=== PATIENT | male | born 1955 | race African-American/Black ===

== ENCOUNTER 2017-09-23 17:26 | Observation (INO) | payer BC, OTHER ==
[2017-09-23] MEDS ORDERED: ONDANSETRON 4 MG/2 ML VIAL IVP STA (18:00)
[2017-09-23] MEDS ORDERED: SODIUM CHLORIDE 0.9% 1,000 ML IV STA (18:00)
[2017-09-23] MEDS ORDERED: HYDROmorphone 1 MG/ML 1 ML SYRINGE IVP STA (18:00)
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
[2017-09-23 18:27] LABS: Basophils % (A) 0 %; Eosinophils # (A) 0.2 k/uL (0-0.7); Eosinophils % (A) 2 %; HCT 40.5 % (39.0-53.0); HGB 13.4 gm/dL (13.0-17.5); Lymphocytes # (A) 2.1 k/uL (1.0-4.8); Lymphocytes % (A) 29 %; MCH 30.3 pg (25.0-35.0); MCHC 33.1 g/dL (31.0-37.0); MCV 91.5 fL (80.0-100.0); Mean Platelet Volume 7.9; Monocytes # (A) 0.3 k/uL (0-1.0); Monocytes % (A) 4 %; Neutrophils # (A) 4.6 k/uL (1.3-7.7); Neutrophils % (A) 63 %; Platelet Count 220 k/uL (150-450); RBC 4.43 m/uL (4.30-5.90); RDW 13.1 % (11.5-15.5); WBC 7.3 k/uL (3.8-10.6)
[2017-09-23 18:40] LABS: ALT 61 U/L (21-72); AST 38 U/L (17-59); Albumin 3.8 g/dL (3.5-5.0); Alkaline Phosphatase 80 U/L (38-126); Anion Gap 9 mmol/L; Blood Urea Nitrogen 13 mg/dL (9-20); Calcium 9.2 mg/dL (8.4-10.2); Carbon Dioxide 25 mmol/L (22-30); Chloride 108 mmol/L (98-107); Glucose 91 mg/dL (74-99); Magnesium 1.8 mg/dL (1.6-2.3); Phosphorus 3.1 mg/dL (2.5-4.5); Potassium 3.6 mmol/L (3.5-5.1); Sodium 142 mmol/L (137-145); Total Bilirubin 0.6 mg/dL (0.2-1.3); Total Protein 7.2 g/dL (6.3-8.2)
[2017-09-23 19:01] LABS: Creatine Kinase 314 U/L (55-170)
[2017-09-23 19:02] LABS: INR 1.1 (<1.2); Partial Thromboplastin Time 25.7 sec (22.0-30.0); Prothrombin Time 10.5 sec (9.0-12.0)
[2017-09-23 19:14] LABS: Creatine Kinase MB 2.1 ng/mL (0.0-2.4); Troponin I <0.012 ng/mL (0.000-0.034)
--- NOTE | 2017-09-23 19:57 | CT ---
EXAMINATION TYPE: CT lumbar spine wo con DATE OF EXAM: 09/23/2017 7:05 PM HISTORY: Lower back pain that radiates into right leg. TECHNIQUE: Departmental protocol. Unenhanced CT of the lumbar spine was performed. Bone and soft tis emily reconstruction algorithms are submitted with axial, coronal, and sagittal sequences. CT DLP: 943 mGycm. Automated exposure control for dose reduction was used. COMPARISON: NONE FINDINGS: There is no fracture or malalignment, and no pars interarticularis defect. There are mild multilevel degenerative disc and facet changes appreciated, with multilevel mild circu mferential disc bulging. However, there is no evident focal disc extrusion-protrusion and the study i s negative for spinal stenosis. The neuroforamen are patent bilaterally. IMPRESSION: 1. MILD MULTILEVEL LUMBAR SPONDYLOSIS CHANGES, BUT NEGATIVE FOR AMARJIT NERVE ROOT IMPINGEMENT. 2. INCIDENTAL FINDINGS: bilateral 1 mm nonobstructing renal calcifications, 1 cm homogeneously right adrenal nodule, consistent with benign adrenal adenoma, and generalized atherosclerotic calcification s are noted, in addition to fusiform there is mild dilation of the infrarenal abdominal aorta consist ent with 3.6 cm caliber infrarenal abdominal aortic aneurysm.
--- NOTE | 2017-09-23 20:04 | CT ---
EXAMINATION TYPE: CT abdomen pelvis wo con DATE OF EXAM: 09/23/2017 COMPARISON: 08/31/2015 HISTORY: Lower back pain that radiates into right leg. CT DLP: 943 mGycm Automated exposure control for dose reduction was used. TECHNIQUE: Helical acquisition of images was performed from the lung bases through the pelvis. FINDINGS: LUNG BASES: No significant abnormality is appreciated. LIVER/GB: No significant abnormality is appreciated. PANCREAS: No significant abnormality is seen. SPLEEN: No significant abnormality is seen. ADRENALS: No significant abnormality is seen. 1 cm low attenuation right adrenal nodule noted, consis tent with unchanged incidental benign adrenal adenoma. KIDNEYS: No significant abnormality is seen. Bilateral 1 mm nonobstructing renal calcifications are i ncidentally noted. PERITONEAL CAVITY: No free air is visualized EXTRAPERITONEAL SPACES OF THE ABDOMEN AND PELVIS: Negative. ADENOPATHY: None visualized REPRODUCTIVE ORGANS: No significant abnormality is seen URINARY BLADDER: No significant abnormality is seen. PELVIC ADENOPATHY: None visualized. OSSEOUS STRUCTURES: No significant abnormality is seen. BOWEL: No significant abnormality is seen. VASCULATURE: Diffuse atherosclerotic intimal calcifications are noted throughout the arterial anatomy . There is also fusiform aneurysmal dilation of the infrarenal abdominal aorta consistent with 3.6 cm abdominal aortic aneurysm; this measured 3.3 cm on the prior CT 2 years ago. The vasculature is othe rwise unremarkable. IMPRESSION: NO ACUTE PROCESS, CT ABDOMEN AND PELVIS WITHOUT CONTRAST.
[2017-09-23 22:45] VITALS: RESP 16
[2017-09-23] MEDS: HYDROmorphone 2 MG/ML 1 ML SYRINGE IVP PRN (23:06)
[2017-09-24] MEDS: HYDROmorphone 2 MG/ML 1 ML SYRINGE IVP PRN ×3 (05:19→16:18)
[2017-09-24] MEDS ORDERED: ENOXAPARIN 40 MG/0.4 ML SYRINGE SQ SCH (09:00)
[2017-09-24 11:13] LABS: Appearance,Urine Clear (Clear); Bilirubin,Urine Negative (Negative); Blood,Urine Negative (Negative); Color,Urine Yellow; Glucose,Urine (UA) Negative (Negative); Ketones,Urine Negative (Negative); Leukocyte Esterase,Urine Negative (Negative); Nitrite,Urine Negative (Negative); PH, Urine 6.5 (5.0-8.0); Protein,Urine Negative (Negative); Specific Gravity,Urine 1.016 (1.001-1.035)
[2017-09-24 15:27] VITALS: BP 153/84; PULSE 76; TEMP 97.5
[2017-09-24] MEDS ORDERED: methylPREDNISolone SOD SUCCI 125 MG/2 ML VIAL IV STA (15:34)
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
--- NOTE | 2017-09-24 18:21 | P.DS ---
Providers Date of admission: 09/23/17 20:32 Attending physician: Ariel Guerra Primary care physician: Farzaneh Castro [facility] Course: Please refer to my HPI Patient Condition at Discharge: Fair Plan - Discharge Summary Discharge Rx Participant: No New Discharge Prescriptions: New Etodolac [Lodine] 400 mg PO BID #30 tab Famotidine [Pepcid] 20 mg PO BID #30 tablet methylPREDNISolone Dose Pack [Medrol Dose Pack] 4 mg PO DIRECTED #21 package Baclofen 10 mg PO TID PRN #30 tab PRN Reason: Spasms HYDROcodone/APAP 7.5-325MG [[place] 7.5-325] 1 tab PO Q4H PRN #20 tab PRN Reason: Pain Discharge Medication List Baclofen 10 mg PO TID PRN #30 tab 09/24/17 [Rx] Etodolac [Lodine] 400 mg PO BID #30 tab 09/24/17 [Rx] Famotidine [Pepcid] 20 mg PO BID #30 tablet 09/24/17 [Rx] HYDROcodone/APAP 7.5-325MG [[place] 7.5-325] 1 tab PO Q4H PRN #20 tab 09/24/17 [Rx ] methylPREDNISolone Dose Pack [Medrol Dose Pack] 4 mg PO DIRECTED #21 package 09/24/17 [Rx] Follow up Appointment(s)/Referral(s): Gloria Moy MD [Primary Care Provider] - 09/29/17 2:10 pm Patient Instructions/Handouts: Back Pain (GEN) Activity/Diet/Wound Care/Special Instructions: Regular diet No smoking, cessation information provided. Activity as tolerated. Discharge Disposition: HOME SELF-CARE
== END 2017-09-24 16:29 | disposition home or self-care (01) ==
LOC: EC 17:26 → 4MS4W 20:32
PROVIDERS: ADMIT Hospitalist; ATTEND Hospitalist
DX: M54.40 Lumbago with sciatica, unspecified side (principal); G89.29 Other chronic pain; I10 Essential (primary) hypertension; E66.9 Obesity, unspecified; Z68.35 Body mass index [BMI] 35.0-35.9, adult; Z79.899 Other long term (current) drug therapy; F17.210 Nicotine dependence, cigarettes, uncomplicated; Z86.73 Personal history of transient ischemic attack (TIA), and cerebral infarction without residual deficits; M54.2 Cervicalgia; G62.9 Polyneuropathy, unspecified; Z88.8 Allergy status to other drugs, medicaments and biological substances; Z80.9 Family history of malignant neoplasm, unspecified; Z79.1 Long term (current) use of non-steroidal anti-inflammatories (NSAID)
CPT/HCPCS: 96361 ×5; 96375 ×4; 96376; 96372; 96374; 99285; 36415; 93005; 97162; 80053; 82550; 82553; 83735; 84100; 84484; 85025; 85610; 85730; 81003; 87086; 72131; 74176; G0378 ×2; J1170 ×3; J2930; J2405; J1650

== ENCOUNTER 2018-11-02 10:15 | Emergency (ER) | payer OTHER ==
[2018-11-02 10:25] VITALS: BP 151/70; PULSE 99; RESP 18; TEMP 98.7
[2018-11-02] MEDS ORDERED: MORPHINE SULFATE 4 MG/ML SYRINGE IM STA ×2 (10:56→12:48)
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
--- NOTE | 2018-11-02 11:44 | XR ---
EXAMINATION TYPE: XR lumbar spine 2 or 3V DATE OF EXAM: 11/02/2018 COMPARISON: NONE HISTORY: 63-year-old male with low back pain after fall TECHNIQUE: 3 views FINDINGS: 5 lumbar type vertebral bodies. Facet arthropathy mid to lower lumbar spine. Mild multilevel degenera tive disc interspace narrowing, more moderate at L5-S1. Vertebral body heights are preserved and alig nment is maintained. Atherosclerotic calcifications of the abdominal aorta with possible aneurysm don suring up to 3.8 cm versus 3.7 cm measured on 07/29/2015. IMPRESSION: 1. Facet arthropathy mid to lower lumbar spine. 2. No vertebral compression collapse or malalignment. 3. Mild multilevel degenerative disc disease, moderate at L5-S1. 4. AAA measured at 3.8 cm versus 3.7 cm in 2015. Not significantly changed.
--- NOTE | 2018-11-02 12:00 | CT ---
EXAMINATION TYPE: CT brain lamin porter con DATE OF EXAM: 11/02/2018 COMPARISON: None HISTORY: Sciatic nerve pain, medication refill CT DLP: 1398 mGycm, Automated exposure control for dose reduction was used. CONTRAST: Patient injected with mL of . CT of the brain is performed utilizing 3 mm thick sections through the posterior fossa and 3 mm thick sections through the remaining calvarium. Study is performed within 24 hours of arrival to the hospital. No abnormal hyperdensity is present to suggest an acute intracranial hemorrhage. No mass lesion is evident. No acute infarcts are evident. Ventricles and sulci are appropriate for the patient age. There is a patent cavum septum lucidum and cavum vergae, normal variants. Paranasal sinuses and mastoid air cells within the [id number] are clear. IMPRESSIONS: 1. Normal CT brain. CT cervical spine. COMPARISON: None CT of the cervical spine is performed in the axial plane at 2 mm thick sections. Reconstructed image s in the coronal, and sagittal plane are reviewed on the computer. No acute fractures are evident. Vertebral body alignment is normal. Mild narrowing of the mid to lower cervical spine present. Anterior vertebral body spurring is presen t. Vertebral body heights are preserved. No spinal canal stenosis is evident. No neural foraminal stenosis is evident. IMPRESSIONS: 1. Mild degenerative changes within the cervical spine
== END 2018-11-02 14:17 | disposition home or self-care (01) ==
LOC: EC 10:15
DX: M54.5 Low back pain (principal); M51.37 Other intervertebral disc degeneration, lumbosacral region; M46.96 Unspecified inflammatory spondylopathy, lumbar region; F17.200 Nicotine dependence, unspecified, uncomplicated; Z86.73 Personal history of transient ischemic attack (TIA), and cerebral infarction without residual deficits; Z88.6 Allergy status to analgesic agent
CPT/HCPCS: 99284; 96372 ×2; 72100; 72125; 70450; J2270

== ENCOUNTER 2019-06-02 21:56 | Emergency (ER) | payer OTHER ==
[2019-06-02 22:10] VITALS: RESP 18
[2019-06-02] MEDS ORDERED: predniSONE 20 MG TAB PO STA (22:41)
[2019-06-02] MEDS ORDERED: ORPHENADRINE 30 MG/ML 2 ML VIAL IM STA (22:41)
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
[2019-06-02 23:26] VITALS: BP 133/76; PULSE 72; TEMP 97.8
== END 2019-06-02 23:59 | disposition home or self-care (01) ==
LOC: EC 21:56
DX: G57.01 Lesion of sciatic nerve, right lower limb (principal); F17.200 Nicotine dependence, unspecified, uncomplicated; Z88.6 Allergy status to analgesic agent
CPT/HCPCS: 99283; 96372; J2360; J7512

== ENCOUNTER → 2019-10-07 | Outpatient (CLI) | payer OTHER ==
[2019-10-07 11:26] LABS: Basophils # (A) 0.1 k/uL (0-0.2); Basophils % (A) 2 %; Eosinophils # (A) 0.1 k/uL (0-0.7); Eosinophils % (A) 2 %; HGB 13.4 gm/dL (13.0-17.5); Lymphocytes % (A) 47 %; MCH 29.9 pg (25.0-35.0); MCHC 31.8 g/dL (31.0-37.0); Monocytes # (A) 0.2 k/uL (0-1.0); Monocytes % (A) 6 %; Neutrophils # (A) 1.7 k/uL (1.3-7.7); Neutrophils % (A) 41 %; Platelet Count 143 k/uL (150-450); RBC 4.47 m/uL (4.30-5.90); RDW 13.1 % (11.5-15.5); WBC 4.2 k/uL (3.8-10.6)
[2019-10-07 11:39] LABS: Prothrombin Time 10.6 sec (9.0-12.0)
[2019-10-07 11:48] LABS: Potassium 4.2 mmol/L (3.5-5.1); Total Bilirubin 0.6 mg/dL (0.2-1.3); Total Protein 7.8 g/dL (6.3-8.2)
--- NOTE | 2019-10-07 12:26 | US ---
EXAMINATION TYPE: US liver DATE OF EXAM: 10/07/2019 COMPARISON: CT 09/23/2014 CLINICAL HISTORY: B18.2 Chronic viral hepatitis C. NPO. No previous surgeries. EXAM MEASUREMENTS: Liver Length: 13.3 cm Gallbladder Wall: 0.2 cm CBD: 0.5 cm Right Kidney: 11.5 x 5.2 x 5.6 cm Pancreas: Tail obscured by overlying bowel gas Liver: No focal mass. Contours nodular Gallbladder: Multiple echogenic foci with shadowing seen. Multiple curves seen in neck region consi stent with redundancy luminal stones. Evidence for sonographic Cobos's sign: neg CBD: wnl Right Kidney: Cortical medullary differentiation is maintained. IMPRESSION: Cholelithiasis, correlate for possible underlying cirrhosis.
[2019-10-11 15:53] LABS: HCV Qualitative Result DETECTED (Not detected); HCV Quant Log 6.08 (<1.08)
== END | disposition home or self-care (01) ==
LOC: RADUSWWP 10:37
DX: K80.20 Calculus of gallbladder without cholecystitis without obstruction (principal); B18.2 Chronic viral hepatitis C
CPT/HCPCS: 76705; 80053; 82105; 85025; 85610; 87522; 87902

== ENCOUNTER 2020-10-26 08:09 | Inpatient (IN) | payer MEDICARE, MEDICAID ==
[2020-10-26] MEDS ORDERED: HALOPERIDOL LACTATE 5 MG/ML 1 ML VIAL IM STA ×2 (08:28→10:11)
[2020-10-26] MEDS ORDERED: LORazepam 2 MG/ML INJ IM STA ×2 (08:29→10:04)
[2020-10-26 09:26] LABS: Basophils # (A) 0.1 k/uL (0-0.2); Basophils % (A) 1 %; Eosinophils # (A) 0.1 k/uL (0-0.7); Eosinophils % (A) 2 %; HCT 41.5 % (39.0-53.0); HGB 13.8 gm/dL (13.0-17.5); Lymphocytes # (A) 2.5 k/uL (1.0-4.8); Lymphocytes % (A) 28 %; MCHC 33.2 g/dL (31.0-37.0); MCV 90.5 fL (80.0-100.0); Mean Platelet Volume 8.1; Monocytes # (A) 0.5 k/uL (0-1.0); Monocytes % (A) 6 %; Neutrophils # (A) 5.7 k/uL (1.3-7.7); Neutrophils % (A) 63 %; Platelet Count 190 k/uL (150-450); RBC 4.59 m/uL (4.30-5.90); RDW 13.3 % (11.5-15.5); WBC 9.1 k/uL (3.8-10.6)
[2020-10-26 09:40] LABS: Albumin 4.8 g/dL (3.5-5.0); Calcium 9.8 mg/dL (8.4-10.2); Total Bilirubin 0.5 mg/dL (0.2-1.3); Total Protein 9.1 g/dL (6.3-8.2)
[2020-10-26 11:22] LABS: Amphetamine Screen,Urine Not Detected (NotDetected); Barbiturate Screen,Urine Not Detected (NotDetected); Benzodiazepines Screen,Urine Not Detected (NotDetected); Cocaine Screen,Urine Not Detected (NotDetected); Methadone Screen, Urine Not Detected (NotDetected); Opiate Screen,Urine Not Detected (NotDetected); Oxycodone Screen, Urine Not Detected (NotDetected); Phencyclidine Screen,Urine Not Detected (NotDetected); Tricyclic Antidepressant,Urine Not Detected (NotDetected); Urn Cannabinoid Scrn Detected (NotDetected)
[2020-10-26 11:23] LABS: Appearance,Urine Clear (Clear); Bilirubin,Urine Negative (Negative); Blood,Urine Negative (Negative); Color,Urine Yellow; Glucose,Urine (UA) Negative (Negative); Ketones,Urine Negative (Negative); Leukocyte Esterase,Urine Negative (Negative); Mucus,Urine Rare /hpf; Nitrite,Urine Negative (Negative); Protein,Urine 1+ (Negative); RBC,Urine 1 /hpf (0-5); Specific Gravity,Urine 1.014 (1.001-1.035); Urobilinogen,Urine <2.0 mg/dL (<2.0); WBC,Urine 1 /hpf (0-5)
[2020-10-26] MEDS ORDERED: LORazepam 1 MG TAB PO PRN (12:19)
[2020-10-26] MEDS ORDERED: MAG HYDROX/AL HYDROX/SIMETH 30 ML CUP PO PRN (12:19)
[2020-10-26] MEDS ORDERED: MAGNESIUM HYDROXIDE 2,400 MG/10 ML CUP PO PRN (12:19)
[2020-10-26] MEDS ORDERED: ACETAMINOPHEN TAB 325 MG TAB PO PRN (12:19)
[2020-10-26] MEDS ORDERED: LORazepam 2 MG/ML INJ IM PRN (12:49)
[2020-10-26] MEDS ORDERED: HALOPERIDOL LACTATE 5 MG/ML 1 ML VIAL IM PRN (12:50)
[2020-10-26] MEDS ORDERED: haloperidoL 5 MG TAB PO PRN (12:51)
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
[2020-10-27] MEDS: amLODIPine 10 MG TAB PO SCH ×2 (00:21→09:19)
[2020-10-27 07:43] LABS: Calcium 9.4 mg/dL (8.4-10.2); Potassium 4.5 mmol/L (3.5-5.1)
--- NOTE | 2020-10-27 11:38 | P.HP ---
Psychiatric H&P - . H&P Date: 10/27/20 History & Physical: Allergies Allergy/AdvReac Type Severity Reaction Status Date / Time NSAIDS (Non-Steroidal Allergy Severe "STROKE,migraines,"black Verified 10/26/20 11:00 Anti-Inflamma outs",diarrhea,& dyspnea,&more" Vital Signs Temp 98.8 F 10/27/20 00:19 Pulse 116 H 10/27/20 09:21 Resp 18 10/27/20 09:21 BP 170/79 10/27/20 09:21 Pulse Ox 100 10/26/20 11:18 Intake & Output 10/26/20 10/27/20 10/27/20 18:59 06:59 18:59 Weight 91.371 kg Laboratory Last Values WBC 9.1 k/uL (3.8-10.6) 10/26/20 09: RBC 4.59 m/uL (4.30-5.90) 10/26/20 09:01 Hgb 13.8 gm/dL (13.0-17.5) 10/26/20 09:01 Hct 41.5 % (39.0-53.0) 10/26/20 09:01 MCV 90.5 fL (80.0-100.0) 10/26/20 09:01 MCH 30.0 pg (25.0-35.0) 10/26/20 09:01 MCHC 33.2 g/dL (31.0-37.0) 10/26/20 09:01 RDW 13.3 % (11.5-15.5) 10/26/20 09:01 Plt Count 190 k/uL (150-450) 10/26/20 09:01 MPV 8.1 10/26/20 09:01 Neutrophils % 63 % 10/26/20 09:01 Lymphocytes % 28 % 10/26/20 09:01 Monocytes % 6 % 10/26/20 09:01 Eosinophils % 2 % 10/26/20 09: Basophils % 1 % 10/26/20 09:01 Neutrophils # 5.7 k/uL (1.3-7.7) 10/26/20 09:01 Lymphocytes # 2.5 k/uL (1.0-4.8) 10/26/20 09: Monocytes # 0.5 k/uL (0-1.0) 10/26/20 09:01 Eosinophils # 0.1 k/uL (0-0.7) 10/26/20 09:01 Basophils # 0.1 k/uL (0-0.2) 10/26/20 09:01 Sodium 139 mmol/L (137-145) 10/27/20 07:13 Potassium 4.5 mmol/L (3.5-5.1) 10/27/20 07:13 Chloride 107 mmol/L (98-107) 10/27/20 07:13 Carbon Dioxide 22 mmol/L (22-30) 10/27/20 07:13 Anion Gap 10 mmol/L 10/27/20 07:13 BUN 17 mg/dL (9-20) 10/27/20 07:13 Creatinine 1.21 mg/dL (0.66-1.25) 10/27/20 07:13 Est GFR (CKD-EPI)AfAm 72 (>60 ml/min/1.73 sqM) 10/27/20 07:13 Est GFR (CKD-EPI)NonAf 63 (>60 ml/min/1.73 sqM) 10/27/20 07:13 Glucose 102 mg/dL (74-99) H 10/27/20 07:13 Calcium 9.4 mg/dL (8.4-10.2) 10/27/20 07:13 Total Bilirubin 0.5 mg/dL (0.2-1.3) 10/26/20 09:01 AST 34 U/L (17-59) 10/26/20 09:01 ALT 28 U/L (4-49) 10/26/20 09:01 Alkaline Phosphatase 85 U/L (38-126) 10/26/20 09:01 Total Protein 9.1 g/dL (6.3-8.2) H 10/26/20 09:01 Albumin 4.8 g/dL (3.5-5.0) 10/26/20 09:01 Triglycerides 151 mg/dL (<150) H 10/27/20 07:13 Cholesterol 224 mg/dL (<200) H 10/27/20 07:13 LDL Cholesterol, Calc 154 mg/dL (0-99) H 10/27/20 07:13 HDL Cholesterol 40 mg/dL (40-60) 10/27/20 07:13 Urine Color Yellow 10/26/20 09: Urine Appearance Clear (Clear) 10/26/20 09: Urine pH 6.0 (5.0-8.0) 10/26/20 09: Ur Specific Mullins 1.014 (1.001-1.035) 10/26/20 09: Urine Protein 1+ (Negative) H 10/26/20 09: Urine Glucose (UA) Negative (Negative) 10/26/20 09: Urine Ketones Negative (Negative) 10/26/20 09: Urine Blood Negative (Negative) 10/26/20 09: Urine Nitrite Negative (Negative) 10/26/20 09: Urine Bilirubin Negative (Negative) 10/26/20 09: Urine Urobilinogen <2.0 mg/dL (<2.0) 10/26/20 09: Ur Leukocyte Esterase Negative (Negative) 10/26/20 09: Urine RBC 1 /hpf (0-5) 10/26/20 09: Urine WBC 1 /hpf (0-5) 10/26/20 09: Urine Mucus Rare /hpf (None) H 10/26/20 09:01 Urine Opiates Screen Not Detected (NotDetected) 10/26/20 09: Ur Oxycodone Screen Not Detected (NotDetected) 10/26/20 09: Urine Methadone Screen Not Detected (NotDetected) 10/26/20 09:01 Ur Propoxyphene Screen Not Detected (NotDetected) 10/26/20 09: Ur Barbiturates Screen Not Detected (NotDetected) 10/26/20 09:01 U Tricyclic Antidepress Not Detected (NotDetected) 10/26/20 09:01 Ur Phencyclidine Scrn Not Detected (NotDetected) 10/26/20 09:01 Ur Amphetamines Screen Not Detected (NotDetected) 10/26/20 09:01 U Methamphetamines Scrn Not Detected (NotDetected) 10/26/20 09:01 U Benzodiazepines Scrn Not Detected (NotDetected) 10/26/20 09:01 Urine Cocaine Screen Not Detected (NotDetected) 10/26/20 09:01 U Marijuana (THC) Screen Detected (NotDetected) H 10/26/20 09:01 Coronavirus (PCR) Not Detected (Not Detectd) 10/26/20 09:01 10/27/20 10:51 IDENTIFYING DATA: Patient is a 65-year-old -[place]ese male who currently lives with his and apartment has 3 kids. HPI: Patient presented to the hospital yesterday with reports of "abnormal behavior". Patient's was claiming that patient has been erratic in his behavior. As per ER report states that patient was demanding that he was the "andrew of [place]". Patient also was displaying pressured speech at that time and admitted to not taking medications and was displaying agitated and combative behavior and required injection when necessary medications. Patient's UDS is positive for marijuana. Patient was admitted on petition and certificate. The patient was seen this morning and was agreeable to speak to writer producer in the office. Patient appeared to be intrusive and yelling at writer producer during the conversation. He also displayed pressured speech and was tangential in his thought process. He spoke about being a "supreme being". He also spoke about the laws not applying to him and spoke repeatedly about the courts and how they are plotting against him. He also spoke about being the "heidi of [place]" and states that "if you don't believe me then called the embassy". He also talked about being God's son was fairly grandiose. He was loose in associations and had multiple loosely formed delusions. He had a poor frustration tolerance and was labile during conversation. He has very poor insight into his condition and claims that his sleep has been poor. Patient denies any suicidal or homicidal ideations intent or plan. At this time patient denies any auditory or visual hallucinations. Patient admits to using marijuana daily and admits to using cigarettes. PAST PSYCHIATRIC HISTORY: Patient states that he has no previous psychiatric history. Patient denies being on any psychiatric medications. Patient denies any previous psychiatric hospitalizations. Patient denies any psychiatric outpatient follow-up. Patient denies any history of suicide attempts in the past. PMH: CVA, hypertension ALLERGIES: as per EMR CHEMICAL DEPENDENCY HISTORY: as per HPI FAMILY PSYCHIATRIC/SUBSTANCE USE HISTORY: denies SOCIAL HISTORY: Patient was born and raised in [facility]. He states that he completed high school. 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 He currently lives with his and apartment has 3 kids. He denies any legal history. MENTAL STATUS EXAM: General Appearance: Patient appears to be overweight, using a walker, stated age is alert, difficult to redirect and aggressive at times/labile. Patient appears to have poor hygiene and grooming. Behavior: Patient is seated without any agitated behavior. And intense stare and irritable. Speech: Patient's speech is pressured and loud. Mood/Affect: Patient reports their mood is "great", affect is congruent and expansive. Suicidality/Homicidality: Patient denies having any homicidal ideation intent or plan. Denies any suicidal ideations intent or plan Perceptions: Patient denies any visual hallucinations and denies any auditory hallucinations Though content/process: Patient has multiple loosely formed delusions, believes he is the andrew of [place], loosening associations. Illogical. Rambles. Memory and concentration: AOX3, grossly intact for the purposes of this session, poor concentration Judgment and insight: poor STRENGTHS/WEAKNESSES: strength is that patient is resilient. Weakness is that patient has poor judgment and is impulsive INTELLECT: average IMPRESSIONS: Bipolar disorder, current episode manic, with psychotic features Cannabis use disorder Nicotine dependence PLAN: -Patient is admitted under involuntary status to [facility]HU for stabilization of psychiatric symptoms and safety. Patient has signed adult voluntary form and medication consent and is placed in patient's chart. A second certification was completed and along with petition will be filed for court. -Medications : Will start patient on haloperidol 2.5 mg liquid twice a day for psychosis. Depakene 250 mg twice a day for mood stabilization. -Ativan and Haldol PRN for agitation/aggression -Patient was informed of the risks, benefits and side effects of the medication and patient claimed that he did not want to take medications. -Internal Medicine consult to perform medical evaluation and physical. -NRT - nicotine patch -SW on board for discharge planning. Encourage patient to participate in groups to work on coping skills. Will await deferral and court date. 10/27/20 11:25
[2020-10-27] MEDS: HALOPERIDOL ORAL SOLN 10 MG/5 ML CUP PO SCH ×2 (12:23→21:30)
[2020-10-27] MEDS: VALPROIC ACID ORAL SOLN 250 MG/5 ML CUP PO SCH ×2 (12:23→21:30)
[2020-10-27 17:17] LABS: Hemoglobin A1C 4.7 % (4.0-6.0)
[2020-10-27] MEDS ORDERED: VALPROIC ACID ORAL SOLN 250 MG/5 ML CUP PO SCH (21:00)
[2020-10-28] MEDS: HALOPERIDOL ORAL SOLN 10 MG/5 ML CUP PO SCH ×3 (09:01→21:34)
[2020-10-28] MEDS: VALPROIC ACID ORAL SOLN 250 MG/5 ML CUP PO SCH ×3 (09:01→21:35)
[2020-10-28] MEDS: amLODIPine 10 MG TAB PO SCH (09:01)
--- NOTE | 2020-10-28 17:17 | P.PN ---
Progress Note - Text Progress Note Date: 10/28/20 Clinical Problems: Bipolar disorder current episode manic with psychotic features, cannabis use disorder, tobacco use Interim history: I reviewed the medical record and interviewed the patient. He is a 65-year-old male with a history of a bipolar illness who was admitted to psychiatric unit involuntarily with symptoms of kendrick and psychosis. Today he was hyperverbal, irritable and paranoid. He expressed multiple paranoid and grandiose delusional beliefs. His anger and agitation escalated to where I had to end the interview. Nursing reports that he is refusing valproic acid prescribed for his bipolar illness. He received IM Haldol and Ativan yesterday for acute agitation. Mental status exam: He presented as a casually groomed elderly after Algerian male who is irritable, paranoid and agitated. He was walking with the aid of a wheeled walker. He was intermittently restless. His speech was pressured and he was hyperverbal. His affect was elevated, irritable and paranoid. He expressed ideas of reference, paranoid delusional beliefs and grandiose delusional beliefs. His thinking was disorganized, illogical and perseverative. Assessment: He is severely mentally ill and has no insight or understanding of his need for treatment. Plan: Continue inpatient treatment. Safety precautions. Proceed with involuntary hospitalization. Encourage compliance with valproic acid 2050 mg twice a day. Continue Haldol 5 mg IM/by mouth and Ativan 1 mg by mouth/IM when necessary for agitation, aggression or acute psychosis. Encourage participation in therapeutic groups and activities as tolerated. Evaluate clinical status response to treatment daily basis.
[2020-10-29] MEDS: HALOPERIDOL ORAL SOLN 10 MG/5 ML CUP PO SCH ×2 (08:53→22:05)
[2020-10-29] MEDS: VALPROIC ACID ORAL SOLN 250 MG/5 ML CUP PO SCH ×2 (08:54→22:05)
[2020-10-29] MEDS: amLODIPine 10 MG TAB PO SCH (08:54)
[2020-10-29] MEDS ORDERED: traMADol-ACETAMINOP 37.5-325MG 1 EACH TAB PO PRN (09:54)
[2020-10-29] MEDS: methocarbamoL 500 MG TAB PO PRN (11:58)
--- NOTE | 2020-10-29 14:57 | P.PN ---
Progress Note - Text Progress Note Date: 10/29/20 Clinical Problems: Bipolar disorder current episode manic with psychotic features, cannabis use disorder, tobacco use Interim history: I reviewed the medical record and interviewed the patient. He is much less irritable and restless than yesterday. She reported that he was compliant with his morning dose of Haldol 2.5 mg and valproic acid 250 mg. He is not regularly attending therapeutic groups and activities but he slept 6 hours last night. Mental status exam: He presented as a casually groomed elderly after German male who is irritable, paranoid and agitated. He was walking with the aid of a wheeled walker. He was intermittently restless. His speech was pressured and he was hyperverbal. His affect remains elevated and slightly irritable He continues to express ideas of reference, paranoid delusional beliefs and grandiose delusional beliefs. His thinking was disorganized, illogical and perseverative. Assessment: He is severely mentally ill and has no insight or understanding of his need for treatment. Plan: Continue inpatient treatment. Safety precautions. Probate hearing pending Encourage compliance with valproic acid 250 mg twice a day and Haldol 2.5 mg twice a day. Continue Haldol 5 mg IM/by mouth and Ativan 1 mg by mouth/IM when necessary for agitation, aggression or acute psychosis. Encourage participation in therapeutic groups and activities as tolerated. Evaluate clinical status response to treatment daily basis.
[2020-10-30] MEDS: VALPROIC ACID ORAL SOLN 250 MG/5 ML CUP PO SCH ×2 (09:37→21:44)
[2020-10-30] MEDS: HALOPERIDOL ORAL SOLN 10 MG/5 ML CUP PO SCH ×2 (09:37→21:44)
[2020-10-30] MEDS: amLODIPine 10 MG TAB PO SCH (09:37)
--- NOTE | 2020-10-30 11:29 | P.PN ---
Progress Note - Text Progress Note Date: 10/30/20 Interval History: Patient was seen resting in bed and was directable and agreeable to speak with blog writer in the office. Patient continues to endorse significant bizarre and grandiose delusions. When asked about his reason for his admission, the patient has difficulty maintaining a linear thought process. He does state that he is the last of the line of [employer] [place] and that it is his duty to return to [place] and set things right. Furthermore, the patient states that he previously served in the [employer]. 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 He then makes a statement about Srinivas Ramirez and is unable to clarify what he is trying to say. The patient reportedly deferred today. He states that he'll leora e medications for now but does not believe need to take medications in the future. Mental Status Exam: General Appearance: Patient appears to be stated age is alert, directable, and cooperative. Patient ambulates with a walker. Hygiene and grooming appear slightly disheveled. Behavior: Patient is calmly seated without any agitated behavior. Psychomotor activity slightly elevated. Eye contact is appropriate. Speech: Patient's speech is somewhat pressured. Rapid in rate. Normal tone, volume, and fluency. Mood/Affect: Mood is labile. Affect is tearful to bright to irritable. Suicidality/Homicidality: Patient denies having any suicidal or homicidal ideation intent or plan. Perceptions: Patient denies any visual hallucinations and denies any auditory hallucinations Though content/process: Grandiose and bizarre delusions are evident. Tangential with flight of ideas. Memory and concentration: AOX3, grossly intact for the purposes of this session Judgment and insight: Very poor Assessment Bipolar disorder, current episode manic, with psychotic features Cannabis use disorder Nicotine dependence Plan: -Patient continues to meet criteria for inpatient psychiatric admission for symptom stabilization and safety. Patient is scheduled for referral today. -Medications: Increase Haldol to 5 mg liquid by mouth twice a day for mood stabilization/psychosis Increase Depakene syrup to 500 mg by mouth twice a day for mood stabilization -When necessary Ativan and Haldol or agitation/aggression. -NRT - [icotine patch]-SW on board for discharge planning. Encouraged the patient to participate in milieu. [
[2020-10-31] MEDS: HALOPERIDOL ORAL SOLN 10 MG/5 ML CUP PO SCH ×2 (09:18→21:27)
[2020-10-31] MEDS: amLODIPine 10 MG TAB PO SCH (09:18)
[2020-10-31] MEDS: VALPROIC ACID ORAL SOLN 250 MG/5 ML CUP PO SCH ×2 (09:19→21:27)
--- NOTE | 2020-10-31 09:39 | P.PN ---
Progress Note - Text Progress Note Date: 10/31/20 Interval History: Patient was seen resting in bed and was directable and agreeable to speak with keno writer in the office. Patient reports that he is feeling better today. He states that he is trying to ambulate without his walker so that he is able to strengthen his legs. He is not reporting any suicidal or homicidal ideation, intention, and/or plan. He is denying any auditory or visual hallucinations. At this time, the patient is less forthcoming about any of his grandiose delusions or bizarre delusions that he endorsed yesterday. He has been adherent with his medications and is not reporting any significant side effects. He is not reporting any chest pain, shortness of breath, or if she is going to the restroom. He denies any issues with sleep or appetite. He states that he slept really well last night. Mental Status Exam: General Appearance: Patient appears to be stated age is alert, directable, and cooperative. Patient is ambulating without his walker. Hygiene and grooming appear improved. Behavior: Patient is calmly seated without any agitated behavior. Psychomotor activity appears normal. Eye contact is appropriate. Speech: Patient's speech is somewhat pressured. Normal tone, rate, volume, and fluency. Mood/Affect: Mood is described as "feeling better." Affect is euthymic to bright. Suicidality/Homicidality: Patient denies having any suicidal or homicidal ideation intent or plan. Perceptions: Patient denies any visual hallucinations and denies any auditory hallucinations Though content/process: Patient is not endorsing any bizarre delusional thought content today. Thought process appears to be linear and logical in short c onversation. Memory and concentration: AOX3, grossly intact for the purposes of this session Judgment and insight: Mildly improving Assessment Bipolar disorder, current episode manic, with psychotic features Cannabis use disorder Nicotine dependence Plan: -Patient continues to meet criteria for inpatient psychiatric admission for symptom stabilization and safety. Patient did not defer. He is scheduled for court. -Medications: Continue Haldol 3 mg liquid by mouth twice a day for mood stabilization/psychosis Continue Depakene syrup 500 mg by mouth twice a day for mood stabilization. We will order a Depakote level on . -When necessary Ativan and Haldol or agitation/aggression. -SW on board for discharge planning. Encouraged the patient to participate in milieu.
[2020-11-01] MEDS: amLODIPine 10 MG TAB PO SCH (09:26)
[2020-11-01] MEDS: VALPROIC ACID ORAL SOLN 250 MG/5 ML CUP PO SCH ×2 (09:26→21:00)
[2020-11-01] MEDS: HALOPERIDOL ORAL SOLN 10 MG/5 ML CUP PO SCH ×2 (09:26→21:01)
--- NOTE | 2020-11-01 11:47 | P.PN ---
Progress Note - Text Progress Note Date: 11/01/20 Interval History: Patient was seen resting in bed and was directable and agreeable to speak with film writer in the office. Patient continues to express that he is feeling great. He is not reporting any suicidal or homicidal ideation, intention, and/or plan. He is not reporting any auditory or visual hallucinations. He is denying any paranoia. When asking him about his plans upon discharge, the patient states that he wants to challenge the court order because it will stop him from "doing what he needs to do." When asked what this entails, the patient states that he plans to go to [place] after this hospitalization because he is thinking of [place] and he needs to work with [place], [place], and fix the problems with other countries. The patient states this in a nonchalant way and believes this firmly. He has otherwise been in adherent with his medications and is not reporting any significant side effects at this time. Mental Status Exam: General Appearance: Patient appears to be stated age is alert, directable, and cooperative. Patient is ambulating without his walker. Hygiene and grooming appear improved. Behavior: Patient is calmly seated without any agitated behavior. Psychomotor activity appears normal. Eye contact is appropriate. Speech: Patient's speech is somewhat pressured. Normal tone, rate, volume, and fluency. Mood/Affect: Mood is described as "feeling better." Affect is euthymic to bright. Suicidality/Homicidality: Patient denies having any suicidal or homicidal ideation intent or plan. Perceptions: Patient denies any visual hallucinations and denies any auditory hallucinations Though content/process: Patient does endorse grandiose delusions. Otherwise his thought process appears to be linear and logical. Memory and concentration: AOX3, grossly intact for the purposes of this session Judgment and insight: Poor Assessment Bipolar disorder, current episode manic, with psychotic features Cannabis use disorder Nicotine dependence Plan: -Patient continues to meet criteria for inpatient psychiatric admission for symptom stabilization and safety. Patient did not defer. He is scheduled for court. -Medications: Continue Haldol 3 mg liquid by mouth twice a day for mood stabilization/psychosis, we will continue to titrate pending patient's response and tolerance. Increase Depakene syrup to 750 mg by mouth twice a day for mood stabilization. -When necessary Ativan and Haldol or agitation/aggression. -SW on board for discharge planning. Encouraged the patient to participate in milieu.
[2020-11-02] MEDS: amLODIPine 10 MG TAB PO SCH (08:07)
[2020-11-02] MEDS: HALOPERIDOL ORAL SOLN 10 MG/5 ML CUP PO SCH ×2 (08:07→20:57)
[2020-11-02] MEDS: VALPROIC ACID ORAL SOLN 250 MG/5 ML CUP PO SCH ×2 (08:07→20:59)
--- NOTE | 2020-11-02 10:01 | P.PN ---
Progress Note - Text Progress Note Date: 11/02/20 Interval History: Patient was seen resting in bed this morning and was directable and agreeable to speak with proposal manager writer in the office. Patient appeared to be calmer today and more appropriate with proposal manager writer during conversation. He continues to ramble at times however was more logical in his thought process and was more goal oriented. She spoke about speaking with his over the phone and spoke about their bills and also how he is losing money being in the hospital. Patient appeared to have improvement in his grandiosity and was not endorsing any delusions today. He states that he is sleeping much better and has an improvement in his appetite since being on the medications. He claims that he has been to 3 groups so far and plans to go to more. He denies any suicidal ideations intent or plan or homicidal ideations intent or plan. He denies any auditory or visual hallucinations. He is not endorsing any paranoia today. Patient has been taking his medications and denies any side effects. Mental Status Exam: General Appearance: Patient appears to be stated age is alert, directable, and more cooperative. Patient is ambulating without his walker. Hygiene and grooming appear improved. Behavior: Patient is calmly seated without any agitated behavior. Psychomotor activity appears normal. Eye contact is appropriate. Speech: Patient's speech is somewhat pressured. Normal tone, rate, volume, and fluency. Mood/Affect: Mood is described as "ok." Affect is euthymic and appropriate. Suicidality/Homicidality: Patient denies having any suicidal or homicidal ideation intent or plan. Perceptions: Patient denies any visual hallucinations and denies any auditory hallucinations Though content/process: Patient does endorse grandiose delusions. Otherwise his thought process appears to be more linear and logical. Memory and concentration: AOX3, grossly intact for the purposes of this session Judgment and insight: Poor, improving midly. Assessment Bipolar disorder, current episode manic, with psychotic features Cannabis use disorder Nicotine dependence Plan: -Patient continues to meet criteria for inpatient psychiatric admission for symptom stabilization and safety. Patient did not and currently awaiting court. -Medications: Continue Haldol 3 mg liquid by mouth twice a day for mood stabilization/psychosis, we will continue to titrate pending patient's response and tolerance. Continue with Depakene syrup to 750 mg by mouth twice a day for mood stabilization. -When necessary Ativan and Haldol or agitation/aggression. -SW on board for discharge planning. Encouraged the patient to participate in milieu. court date expected for 11/08/20. likely discharge shortly afterwards
[2020-11-02 11:33] VITALS: BMI 30.3
[2020-11-02] MEDS: methocarbamoL 500 MG TAB PO PRN (20:59)
[2020-11-03] MEDS: HALOPERIDOL ORAL SOLN 10 MG/5 ML CUP PO SCH (09:15)
[2020-11-03] MEDS: amLODIPine 10 MG TAB PO SCH (09:15)
[2020-11-03] MEDS: VALPROIC ACID ORAL SOLN 250 MG/5 ML CUP PO SCH (09:17)
--- NOTE | 2020-11-03 10:50 | P.PN ---
Progress Note - Text Progress Note Date: 11/03/20 Interval History: Patient was seen wandering the hallways on his wheelchair and was directable and agreeable to speak with specification writer in the office. Patient appeared to be calmer today and more appropriate with specification writer during conversation. He continues to ramble at times during conversation. He appeared to be more logical today however spoke about potentially "leaving the country" and spoke about the country being "run by the state". He states that he has been trying to go to groups and participate as best as he can. Patient appears to have improvement in his affect and states that he is feeling better overall. He states that he is continuing to wait for Court and wants to "clear me name". He also states that he has been speaking with his and anticipating discharge next week. Patient appeared to have improvement in his grandiosity and was not endorsing any delusions today. He states that he is sleeping much better. He denies any suicidal ideations intent or plan or homicidal ideations intent or plan. He denies any auditory or visual hallucinations. He is not endorsing any paranoia today. Patient has been taking his medications and denies any side effects. Mental Status Exam: General Appearance: Patient appears to be stated age is alert, directable, and more cooperative. On his wheelchair. Hygiene and grooming appear improved. Behavior: Patient is calmly seated without any agitated behavior. Psychomotor activity appears normal. Eye contact is appropriate. Speech: Patient's speech is somewhat pressured. Normal tone, rate, volume, and fluency. Mood/Affect: Mood is described as "better" Affect is euthymic and appropriate. Suicidality/Homicidality: Patient denies having any suicidal or homicidal ideation intent or plan. Perceptions: Patient denies any visual hallucinations and denies any auditory hallucinations Though content/process: Patient does endorse grandiose delusions. Otherwise his thought process appears to be more linear and logical. Rambles at times, tangential. Memory and concentration: AOX3, grossly intact for the purposes of this session Judgment and insight: improving midly. Assessment Bipolar disorder, current episode manic, with psychotic features Cannabis use disorder Nicotine dependence Plan: -Patient continues to meet criteria for inpatient psychiatric admission for symptom stabilization and safety. Patient did not and currently awaiting court. -Medications: Switch to pill form of Haldol 3 mg by mouth twice a day for mood stabilization/psychosis. Switch to Depakote 500 mg daily + 1000mg qhs for mood stabilization. -When necessary Ativan and Haldol or agitation/aggression. -SW on board for discharge planning. Encouraged the patient to participate in milieu. court date expected for 11/08/20. likely discharge after court.
--- NOTE | 2020-11-03 15:04 | P.PN ---
<Kalyan Bowen - Last Filed: 11/03/20 13:49> Subjective Progress Note Date: 11/03/20 Hospital course: Patient is a 65-year-old male admitted to the mental health unit with a past medical history of hypertension, previous CVA with reports of right-sided defici ts of numbness and tingling in his right fingers and toes, chronic back pain, bipolar disorder, cannabis use disorder, and nicotine dependence on cigarettes. We are consulted for medical management. Pt was found to have significant elevation in his lipid profile with triglycerides 151, cholesterol of 224, and LDL of 154. Physical exam: Patient was seen and fully examined. We discussed his past medical history of hypertension and previous CVA. Discussed elevated lipid profile. Patient reports he was told previously that he had elevated cholesterol and was put on medication but has not taken in about a year. Patient was educated on importance of adherence to medication regimen to prevent further adverse health consequences. Patient reports that he continues to have uncontrolled chronic lower back pain but denies having any other complaints at this time including headache, lightheadedness, dizziness, changes in his vision or hearing, chest pain or palpitations, shortness of breath, dyspnea with exertion, or experienci ng any new onset or worsening numbness/tingling/weakness in extremities. General: non toxic, no distress, appears at stated age Derm: warm, dry Head: atraumatic, normocephalic, symmetric Eyes: No lid lag, anicteric sclera Mouth: No lip lesion, mucus membranes moist. Poor dentition missing teeth. Cardiovascular: Regular rate and rhythm, no murmur, positive posterior tibial pulses bilaterally. Lungs: CTA bilateral, no rhonchi, no rales, no wheezing, and no accessory muscle use Abdominal: Soft, nontender to palpation, no guarding, no appreciable organomegaly Ext: no gross muscle atrophy, no edema, no contractures Neuro: Speech clear, GCS 15, no focal neuro deficits Psych: Alert, oriented, appropriate affect Plan of care: Hyperlipidemia -We will start patient on atorvastatin 40 mg nightly. -Patient counseled on importance of maintaining a heart healthy diet and better lifestyle choices. Hypertension -Monitor vital signs and continue daily medication management with amlodipine. History of a CVA with reports of right-sided deficits having numbness and ting ling in his right fingers and right toes -Patient being placed on daily aspirin 81 mg. -Patient also placed on atorvastatin secondary to elevated lipid profile. -Patient counseled on the importance of maintaining a heart healthy diet and making better lifestyle choices. Nicotine dependence on cigarettes -Patient educated on the benefits of smoking cessation and risks of continued use up to and including . Bipolar disorder -Management per primary admitting psychiatric team. Thank you for allowing us to participate in the care of this pleasant patient. Do not hesitate to contact us with questions. Someone can be reached from the [facility] hospitalist group all hours of the day at [phone] or via [employer]. Objective - Vital Signs Vital signs: Vital Signs Temp 98.5 F 11/03/20 04:26 Pulse 110 H 11/03/20 09:15 Resp 18 11/02/20 05:53 BP 141/79 11/03/20 09:15 Pulse Ox 97 10/31/20 07:00 Intake & Output 11/02/20 11/03/20 11/03/20 18:59 06:59 18:59 Weight 90.5 kg - Labs CBC & Chem 7: 10/26/20 09:01 10/27/20 07:13 <Zoë Arellano - Last Filed: 11/03/20 15:36> Subjective I discussed the care with Kalyan Bowen NP and reviewed the findings and plan as documented in the note above. I did not staff this patient on this date. Objective - Vital Signs Vital signs: Vital Signs Temp 97.8 F 11/03/20 14:01 Pulse 110 H 11/03/20 09:15 Resp 18 11/02/20 05:53 BP 141/79 11/03/20 09:15 Pulse Ox 97 10/31/20 07:00 Intake & Output 11/02/20 11/03/20 11/03/20 18:59 06:59 18:59 Weight 90.5 kg - Labs CBC & Chem 7: 10/26/20 09:01 10/27/20 07:13
[2020-11-03] MEDS: ASPIRIN 81 MG PO SCH (17:01)
[2020-11-03] MEDS: DIVALPROEX ER 500 MG TAB.ER.24H PO SCH (20:54)
[2020-11-03] MEDS: ATORVASTATIN 40 MG TAB PO SCH (20:55)
[2020-11-03] MEDS: haloperidoL 1 MG TAB PO SCH (20:55)
[2020-11-04] MEDS: haloperidoL 1 MG TAB PO SCH ×2 (08:44→20:03)
[2020-11-04] MEDS: DIVALPROEX ER 500 MG TAB.ER.24H PO SCH ×2 (08:44→20:04)
[2020-11-04] MEDS: amLODIPine 10 MG TAB PO SCH (08:44)
[2020-11-04] MEDS: ASPIRIN 81 MG PO SCH (08:44)
--- NOTE | 2020-11-04 10:38 | P.PN ---
Progress Note - Text Progress Note Date: 11/04/20 Interval History: Patient was seen resting in bed and was directable and agreeable to speak with the keno writer / runner. The patient reports that he is feeling well. He states that the switching from the liquid medication to the pill medication is much better for him as he does not have to deal with the poor taste. He is currently not reporting any suicidal or homicidal ideation, intention, and/or plan. He is not reporting any auditory or visual hallucinations. He is denying any paranoia or delusions at this time. He appears to be less grandiose at this time. He is less forthcoming with his delusions. He has been attending group and milieu activities. He denies any issues with sleep or appetite. He reports no significant side effects to his medications and has been adherent. Mental Status Exam: General Appearance: Patient appears to be stated age is alert, directable, and cooperative. Patient relates via his wheelchair. Hygiene and grooming appear good. Behavior: Patient is calmly seated without any agitated behavior. Psychomotor activity appears normal. Eye contact is appropriate. Speech: Patient's speech is somewhat pressured. Normal tone, rate, volume, and fluency. Mood/Affect: Mood is described as "doing great" Affect is euthymic to bright. Suicidality/Homicidality: Patient denies having any suicidal or homicidal ideation intent or plan. Perceptions: Patient denies any visual hallucinations and denies any auditory hallucinations Though content/process: The patient is currently not endorsing any delusional thought content. His thought process does appear to be linear and logical at this time. Memory and concentration: AOX3, grossly intact for the purposes of this session Judgment and insight: Mildly improving Assessment/Plan: Continue with current diagnosis. Patient continues to meet criteria for inpatient psychiatric admission for symptom stabilization and safety. Patient will be maintained on current psychotropic medication regimen. Monitor for medication compliance and for any psychotropic medication side effects. Will continue to monitor ongoing response to treatment. Encouraged participation in milieu.
[2020-11-04] MEDS: ATORVASTATIN 40 MG TAB PO SCH (20:04)
[2020-11-05] MEDS: amLODIPine 10 MG TAB PO SCH (07:51)
[2020-11-05] MEDS: ASPIRIN 81 MG PO SCH (07:51)
[2020-11-05] MEDS: DIVALPROEX ER 500 MG TAB.ER.24H PO SCH ×2 (07:51→20:04)
[2020-11-05] MEDS: haloperidoL 1 MG TAB PO SCH ×2 (07:51→20:04)
--- NOTE | 2020-11-05 10:32 | P.PN ---
Progress Note - Text Progress Note Date: 11/05/20 Interval History: Patient was seen resting in bed and was directable and agreeable to speak with the bond underwriter. The patient reports that he is feeling good. He is not reporting any suicidal or homicidal ideation, intention, and/or plan. He is denying any auditory or visual hallucinations. He is denying any paranoia or delusions at this time. 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 When asking what these options are, the patient states that he plans to work for the [employer] and if that does not work out, he plans to go to [employer] school to become a psychiatrist. Despite this, the patient has been adherent with his medications and has been participating in group and milieu activities appropriately. Mental Status Exam: General Appearance: Patient appears to be stated age is alert, directable, and cooperative. Patient relates via his wheelchair. Hygiene and grooming appear good. Behavior: Patient is calmly seated without any agitated behavior. Psychomotor activity appears normal. Eye contact is appropriate. Speech: Patient's speech is somewhat pressured. Normal tone, rate, volume, and fluency. Mood/Affect: Mood is described as "feeling good." Affect is euthymic to bright. Suicidality/Homicidality: Patient denies having any suicidal or homicidal ideation intent or plan. Perceptions: Patient denies any visual hallucinations and denies any auditory hallucinations Though content/process: Mild grandiosity is endorsed. Otherwise thought process appears to be linear and somewhat illogical. Memory and concentration: AOX3, grossly intact for the purposes of this session Judgment and insight: Mildly improving Assessment/Plan: Continue with current diagnosis. Patient continues to meet criteria for inpatient psychiatric admission for symptom stabilization and safety. Patient will be maintained on current psychotropic medication regimen. Monitor for medication compliance and for any psychotropic medication side effects. Will continue to monitor ongoing response to treatment. Encouraged participation in milieu.
[2020-11-05] MEDS: ATORVASTATIN 40 MG TAB PO SCH (20:04)
[2020-11-06] MEDS: amLODIPine 10 MG TAB PO SCH (09:17)
[2020-11-06] MEDS: ASPIRIN 81 MG PO SCH (09:17)
[2020-11-06] MEDS: haloperidoL 1 MG TAB PO SCH ×2 (09:17→20:49)
[2020-11-06] MEDS: DIVALPROEX ER 500 MG TAB.ER.24H PO SCH ×2 (09:17→20:48)
--- NOTE | 2020-11-06 09:36 | P.PN ---
Progress Note - Text Progress Note Date: 11/06/20 Interval History: Patient was seen wandering the hallways on his wheelchair after taking his med ications this morning and was directable and agreeable to speak with continuity writer in the office. Patient appeared to be calmer today and was joking around at times brighter. He spoke about his visiting him on the unit over the weekend and states that "everything went well". He denied any overnight complaints and states that he is able to sleep well last night. He did state that he woke up early today however due to back spasms and states that he requested a heating pack which had helped and is going to be trying the Robaxin which is helped in the past. He denied any significant complaints over the weekend. He spoke more about his family. He continues to ramble at times during conversation. He appeared to be more logical today. He states that he has been trying to go to groups and participate as best as he can. Patient appears to have improvement in his affect and states that he is feeling better overall. He states that he is continuing to wait for his court date and is anticipating speaking to the justice court judge. Patient appeared to have improvement in his grandiosity and was not endorsing any delusions today. He denies any suicidal ideations intent or plan or homicidal ideations intent or plan. He denies any auditory or visual hallucinations. He is not endorsing any paranoia today. Patient has been taking his medications and denies any side effects. Mental Status Exam: General Appearance: Patient appears to be stated age is alert, directable, and more cooperative. On his wheelchair. Hygiene and grooming appear improved. Behavior: Patient is calmly seated without any agitated behavior. Eye contact is appropriate. Speech: Patient's speech is somewhat pressured. Normal tone, rate, volume, and fluency. Mood/Affect: Mood is described as "good". Affect is euthymic and appropriate. Suicidality/Homicidality: Patient denies having any suicidal or homicidal ideation intent or plan. Perceptions: Patient denies any visual hallucinations and denies any auditory hallucinations Though content/process: Patient does endorse grandiose delusions. Otherwise his thought process appears to be more linear and logical. Rambles at times, tangential at times. Memory and concentration: AOX3, grossly intact for the purposes of this session Judgment and insight: improving midly. Assessment Bipolar disorder, current episode manic, with psychotic features Cannabis use disorder Nicotine dependence Plan: -Patient continues to meet criteria for inpatient psychiatric admission for symptom stabilization and safety. Patient did not and currently awaiting court. -Medications: Continue with Haldol 3 mg by mouth twice a day for mood stabilization/psychosis, continue with Depakote 500 mg daily + 1000mg qhs for mood stabilization. -When necessary Ativan and Haldol or agitation/aggression. -SW on board for discharge planning. Encouraged the patient to participate in milieu. court date set for 11/08/20. likely discharge after court hearing back home.
[2020-11-06] MEDS: ATORVASTATIN 40 MG TAB PO SCH (20:48)
--- NOTE | 2020-11-07 09:08 | P.PN ---
Progress Note - Text Progress Note Date: 11/07/20 Interval History: Patient was seen wandering the hallways on his wheelchair after taking his med ications this morning and was directable and agreeable to speak with field underwriter in the office. Patient appeared to be calm once again this morning however patient was fairly preoccupied with his pain medications today. He repeatedly asked field underwriter if he could prescribe different pain medications for his back. He states that only "Marinol and Percocet work". After a lengthy discussion about pain medications and the potential interactions and tolerability of the medications patient was agreeable to continue on with Robaxin and Ultracet as needed. He spoke again about court and is looking forward to speaking with the shrimp boat captain tomorrow. He denied any overnight complaints and states that he is able to sleep well last night. He claims that the Haldol and Depakote are helping him however he feels that he needs to take naps on the unit as he is feeling bored. He continues to ramble at times during conversation. He appeared to be more logical today. He states that he has been trying to go to groups and participate as best as he can. He claims that his mood and anxiety but improving. He was not endorsing any delusions today. He denies any suicidal ideations intent or plan or homicidal ideations intent or plan. He denies any auditory or visual hallucinations. Patient has been taking his medications and denies any side effects. Mental Status Exam: General Appearance: Patient appears to be stated age is alert, directable, and more cooperative. On his wheelchair. Hygiene and grooming appear improved. Behavior: Patient is calmly seated without any agitated behavior. Eye contact is appropriate. Speech: Patient's speech is somewhat pressured. Normal tone, rate, volume, and fluency. Mood/Affect: Mood is described as "alright". Affect is euthymic and appropriate. Suicidality/Homicidality: Patient denies having any suicidal or homicidal ideation intent or plan. Perceptions: Patient denies any visual hallucinations and denies any auditory hallucinations Though content/process: Patient was preoccupied with pain medications today. Otherwise his thought process appears to be more linear and logical. Rambles at times, tangential at times. Memory and concentration: AOX3, grossly intact for the purposes of this session Judgment and insight: improving midly Assessment Bipolar disorder, current episode manic, with psychotic features Cannabis use disorder Nicotine dependence Plan: -Patient continues to meet criteria for inpatient psychiatric admission for symptom stabilization and safety. Patient did not and currently awaiting court. -Medications: Continue with Haldol 3 mg by mouth twice a day for mood stabilization/psychosis, continue with Depakote 500 mg daily + 1000 mg qhs for mood stabilization. -When necessary Ativan and Haldol or agitation/aggression. -SW on board for discharge planning. Encouraged the patient to participate in milieu. court date set for 11/08/20. likely discharge tomorrow after court hearing
[2020-11-07] MEDS: DIVALPROEX ER 500 MG TAB.ER.24H PO SCH ×2 (09:35→21:53)
[2020-11-07] MEDS: amLODIPine 10 MG TAB PO SCH (09:35)
[2020-11-07] MEDS: ASPIRIN 81 MG PO SCH (09:35)
[2020-11-07] MEDS: haloperidoL 1 MG TAB PO SCH ×2 (09:35→21:53)
[2020-11-07] MEDS: ATORVASTATIN 40 MG TAB PO SCH (21:53)
[2020-11-08 06:15] VITALS: TEMP 98.5
[2020-11-08] MEDS: ASPIRIN 81 MG PO SCH (08:42)
[2020-11-08] MEDS: amLODIPine 10 MG TAB PO SCH (08:42)
[2020-11-08] MEDS: haloperidoL 1 MG TAB PO SCH (08:42)
[2020-11-08] MEDS: DIVALPROEX ER 500 MG TAB.ER.24H PO SCH (08:42)
[2020-11-08] MEDS ORDERED: BENZTROPINE MESYLATE 0.5 MG TAB PO SCH ×2 (09:45→21:00)
[2020-11-08] MEDS ORDERED: BENZTROPINE MESYLATE 1 MG TAB PO ONE (09:47)
[2020-11-08 09:50] VITALS: BP 164/83; PULSE 127; RESP 18
--- NOTE | 2020-11-08 09:55 | P.DS ---
Providers Date of admission: 10/26/20 12:11 Expected date of discharge: 11/08/20 Attending physician: Killian Guzman MD Consults: 10/26/20 12:19 Consult Physician Routine Consulting Provider: [place] Physician Consult Reason/Comments: H & P and medical care Do you want consulting provider notified?: Yes Primary care physician: Stated None - Discharge Diagnosis(es) (1) Bipolar disorder, current episode manic severe with psychotic features Current Visit: Yes Status: Acute Priority: High (2) Cannabis use disorder, mild, abuse Current Visit: Yes Status: Acute Priority: Medium (3) Nicotine dependence Current Visit: Yes Status: Acute Priority: Low Hospital Course: Admission HPI: Admission note was completed by blog writer "Patient is a 65-year-old - [place] male who currently lives with his and apartment has 3 kids. Patient presented to the hospital yesterday with reports of "abnormal behavior". Patient's was claiming that patient has been erratic in his behavior. As per ER report states that patient was demanding that he was the "andrew of [place]". Patient also was displaying pressured speech at that time and admitted to not taking medications and was displaying agitated and combative behavior and required injection when necessary medications. Patient's UDS is positive for marijuana. Patient was admitted on petition and certificate. The patient was seen this morning and was agreeable to speak to blog writer in the office. Patient appeared to be intrusive and yelling at blog writer during the conversation. He also displayed pressured speech and was tangential in his thought process. He spoke about being a "supreme being". He also spoke about the laws not applying to him and spoke repeatedly about the courts and how they are plotting against him. He also spoke about being the "heidi of [place]" and states that "if you don't believe me then called the embassy". He also talked about being God's son was fairly grandiose. He was loose in associations and had multiple loosely formed delusions. He had a poor frustration tolerance and was labile during conversation. He has very poor insight into his condition and claims that his sleep has been poor. Patient denies any suicidal or homicidal ideations intent or plan. At this time patient denies any auditory or visual hallucinations. Patient admits to using marijuana daily and admits to using cigarettes." Hospital course: Upon admission to the unit patient was initially impulsive, agitated and psychotic/manic. Patient was however admitted involuntarily and the clinical certificate and petition were filed to the court and patient had a court hearing on the day of discharge 11/08/20 which resulted in a treatment order. Patient got along well with other patients on the unit and followed unit protocol. Patient was compliant with the medications and denied any side effects throughout hospital course. Patient was started on haloperidol and titrated up to dose of 3 mg twice a day for psychosis. Patient was also started on Depakote and titrated up to dose of 500 mg daily +1000 mg daily at bedtime for mood stabilization. Patient was complaining of muscle spasms at times near the end of the hospitalization and patient was started on Cogentin for EPS reaction. Patient spoke of his stressors and engaged in therapy both group and individual. Patient was also seen by medical team for history and physical exam. Throughout the course of the hospitalization patient gradually improved with regards to mood, psychosis, aggression, sleep. He became more future oriented with improvement in his insight and judgment. On the day of discharge patient denied any suicidal or homicidal ideations intent or plan denied any auditory or visual hallucinations. Patient endorsed wanting to live for his health and future. The patient denied any access to guns or weapons. Patient denied any paranoia and did not endorse any delusions. Patient does not have a significant history of substance abuse however was counseled on abstaining from all substances including alcohol and marijuana. Patient was also counseled on the medications and need for regular compliance and was encouraged to follow-up with their outpatient appointment for mental health and also for primary care. During the hospitalization, patient's came to visit him on the unit Prior to discharge a family meeting will be arranged by sexual assault social worker to answer any questions and ensure safety upon discharge. Mental status exam: General Appearance: Patient appears to be in a wheelchair, overweight, stated age is alert, pleasant, and cooperative. Patient is in no acute distress and has improved hygiene and grooming Behavior: Patient is calmly seated without any agitated behavior. Speech: Patient's speech is fluent and nonpressured. Mood/Affect: Patient reports their mood is "better", affect is congruent and euthymic. Suicidality/Homicidality: Patient denies having any suicidal or homicidal ideation intent or plan. Perceptions: Patient denies any auditory or visual hallucinations. Though content/process: There is no evidence of any delusional thought content and thought process is linear and goal-directed. Memory and concentration: AOX3, grossly intact for the purposes of this session. Can spell "WORLD" backwards correctly. Judgment and insight: chronically poor, however has improved with guarded prognosis Impression: Bipolar disorder, current episode manic, with psychotic features Cannabis use disorder mild Nicotine dependence Plan: -Continue with discharge today as patient has improved and stabilized psychiatrically and is not currently an imminent threat to himself and/or others. Patient will remain at chronically elevated risk for harm to self and/or others due to his chronically poor insight and judgment. -Continue medications: Continue with Haldol 3 mg twice a day for psychosis, Depakote 500 mg daily +1000 mg daily at bedtime for mood stabilization. Cogentin 0.5 mg twice a day when necessary for EPS reaction/muscle spasms. -Patient was counseled on the need for medication compliance and appropriate follow-up at mental health and also primary care for medical issues. Patient verbalized understanding and agreed. -Social work to arrange for and conduct family meeting to ensure safety upon discharge and answer any questions/concerns. Social work also to arrange for patients follow up appointments with [facility] for psychiatric care along with follow up with primary care provider. -Patient counseled on abstaining from recreational drugs and marijuana and alcohol. Was informed/educated on the adverse effects on their physical and mental health. Patient verbally agreed and understood. -Patient was instructed to return to the hospital or seek immediate medical care if their psychiatric or medical symptoms do worsen or reoccur. Allergies Allergy/AdvReac Type Severity Reaction Status Date / Time NSAIDS (Non-Steroidal Allergy Severe "STROKE,migraines,"black Verified 10/26/20 11:00 Anti-Inflamma outs",diarrhea,& dyspnea,&more" Laboratory Results WBC 9.1 k/uL (3.8-10.6) 10/26/20 09:01 RBC 4.59 m/uL (4.30-5.90) 10/26/20 09:01 Hgb 13.8 gm/dL (13.0-17.5) 10/26/20 09:01 Hct 41.5 % (39.0-53.0) 10/26/20 09:01 MCV 90.5 fL (80.0-100.0) 10/26/20 09:01 MCH 30.0 pg (25.0-35.0) 10/26/20 09:01 MCHC 33.2 g/dL (31.0-37.0) 10/26/20 09:01 RDW 13.3 % (11.5-15.5) 10/26/20 09:01 Plt Count 190 k/uL (150-450) 10/26/20 09:01 MPV 8.1 10/26/20 09:01 Neutrophils % 63 % 10/26/20 09:01 Lymphocytes % 28 % 10/26/20 09:01 Monocytes % 6 % 10/26/20 09: Eosinophils % 2 % 10/26/20 09: Basophils % 1 % 10/26/20 09:01 Neutrophils # 5.7 k/uL (1.3-7.7) 10/26/20 09:01 Lymphocytes # 2.5 k/uL (1.0-4.8) 10/26/20 09:01 Monocytes # 0.5 k/uL (0-1.0) 10/26/20 09:01 Eosinophils # 0.1 k/uL (0-0.7) 10/26/20 09:01 Basophils # 0.1 k/uL (0-0.2) 10/26/20 09:01 Sodium 139 mmol/L (137-145) 10/27/20 07:13 Potassium 4.5 mmol/L (3.5-5.1) 10/27/20 07:13 Chloride 107 mmol/L (98-107) 10/27/20 07:13 Carbon Dioxide 22 mmol/L (22-30) 10/27/20 07:13 Anion Gap 10 mmol/L 10/27/20 07:13 BUN 17 mg/dL (9-20) 10/27/20 07:13 Creatinine 1.21 mg/dL (0.66-1.25) 10/27/20 07:13 Est GFR (CKD-EPI)AfAm 72 (>60 ml/min/1.73 sqM) 10/27/20 07:13 Est GFR (CKD-EPI)NonAf 63 (>60 ml/min/1.73 sqM) 10/27/20 07:13 Glucose 102 mg/dL (74-99) H 10/27/20 07:[address] Glu mg/dL 88 10/27/20 07:13 Hemoglobin A1c 4.7 % (4.0-6.0) 10/27/20 07:13 Calcium 9.4 mg/dL (8.4-10.2) 10/27/20 07:13 Total Bilirubin 0.5 mg/dL (0.2-1.3) 10/26/20 09: AST 34 U/L (17-59) 10/26/20 09: ALT 28 U/L (4-49) 10/26/20 09: Alkaline Phosphatase 85 U/L (38-126) 10/26/20 09: Total Protein 9.1 g/dL (6.3-8.2) H 10/26/20 09: Albumin 4.8 g/dL (3.5-5.0) 10/26/20 09:01 Triglycerides 151 mg/dL (<150) H 10/27/20 07:13 Cholesterol 224 mg/dL (<200) H 10/27/20 07:13 LDL Cholesterol, Calc 154 mg/dL (0-99) H 10/27/20 07:13 HDL Cholesterol 40 mg/dL (40-60) 10/27/20 07:13 Urine Color Yellow 10/26/20 09: Urine Appearance Clear (Clear) 10/26/20 09: Urine pH 6.0 (5.0-8.0) 10/26/20 09: Ur Specific [place] 1.014 (1.001-1.035) 10/26/20 09: Urine Protein 1+ (Negative) H 10/26/20 09: Urine Glucose (UA) Negative (Negative) 10/26/20 09: Urine Ketones Negative (Negative) 10/26/20 09: Urine Blood Negative (Negative) 10/26/20: Urine Nitrite Negative (Negative) 10/26/20: Urine Bilirubin Negative (Negative) 10/26/20 09: Urine Urobilinogen <2.0 mg/dL (<2.0) 10/26/20 09: Ur Leukocyte Esterase Negative (Negative) 10/26/20: Urine RBC 1 /hpf (0-5) 10/26/20 09:01 Urine WBC 1 /hpf (0-5) 10/26/20 09:01 Urine Mucus Rare /hpf (None) H 10/26/20 09:01 Urine Opiates Screen Not Detected (NotDetected) 10/26/20 09:01 Ur Oxycodone Screen Not Detected (NotDetected) 10/26/20 09:01 Urine Methadone Screen Not Detected (NotDetected) 10/26/20 09:01 Ur Propoxyphene Screen Not Detected (NotDetected) 10/26/20 09:01 Ur Barbiturates Screen Not Detected (NotDetected) 10/26/20 09:01 U Tricyclic Antidepress Not Detected (NotDetected) 10/26/20 09:01 Ur Phencyclidine Scrn Not Detected (NotDetected) 10/26/20 09:01 Ur Amphetamines Screen Not Detected (NotDetected) 10/26/20 09:01 U Methamphetamines Scrn Not Detected (NotDetected) 10/26/20 09:01 U Benzodiazepines Scrn Not Detected (NotDetected) 10/26/20 09:01 Urine Cocaine Screen Not Detected (NotDetected) 10/26/20 09:01 U Marijuana (THC) Screen Detected (NotDetected) H 10/26/20 09:01 Coronavirus (PCR) Not Detected (Not Detectd) 10/26/20 09:01 Vital Signs Temp 98.5 F 11/08/20 06:14 Pulse 127 H 11/08/20 09:49 Resp 18 11/08/20 09:49 BP 164/83 11/08/20 09:49 Pulse Ox 97 10/31/20 07:00 Patient Condition at Discharge: Stable Plan - Discharge Summary Discharge Rx Participant: No New Discharge Prescriptions: New Aspirin 81 mg PO DAILY 30 Days chew Benztropine Mesylate [Cogentin] 0.5 mg PO BID PRN 30 Days tab PRN Reason: for muscle spasms Divalproex ER [Depakote ER] 500 mg PO DAILY 30 Days tab.er.24h Divalproex ER [Depakote ER] 1,000 mg PO HS 30 Days tab.er.24h haloperidoL [Haldol] 3 mg PO BID 30 Days tab Atorvastatin [Lipitor] 40 mg PO HS 30 Days tab amLODIPine [Norvasc] 10 mg PO DAILY 30 Days tab methocarbamoL [Robaxin] 500 mg PO TID PRN 30 Days tab PRN Reason: Muscle Spasm Discharge Medication List Aspirin 81 mg PO DAILY 30 Days chew 11/08/20 [Rx] Atorvastatin [Lipitor] 40 mg PO HS 30 Days tab 11/08/20 [Rx] Benztropine Mesylate [Cogentin] 0.5 mg PO BID PRN 30 Days tab 11/08/20 [Rx] Divalproex ER [Depakote ER] 1,000 mg PO HS 30 Days tab.er.24h 11/08/20 [Rx] Divalproex ER [Depakote ER] 500 mg PO DAILY 30 Days tab.er.24h 11/08/20 [Rx] amLODIPine [Norvasc] 10 mg PO DAILY 30 Days tab 11/08/20 [Rx] haloperidoL [Haldol] 3 mg PO BID 30 Days tab 11/08/20 [Rx] methocarbamoL [Robaxin] 500 mg PO TID PRN 30 Days tab 11/08/20 [Rx] Follow up Appointment(s)/Referral(s): [facility] [Outside] - 11/10/20 12:30 pm (with Marcia by phone. ) None,Stated [Primary Care Provider] - 1 Week Activity/Diet/Wound Care/Special Instructions: Activity and diet as tolerated. Avoid the use of street drugs and alcohol. Take all medications as prescribed. When you are in need of refills on your medications please contact your medical provider and/or outpatient psychiatrist to have this done. Please go to scheduled outpatient appointment for aftercare treatment. If symptoms return or become worse, call the crisis line at and/or go to the nearest emergency room for evaluation. Discharge Disposition: HOME SELF-CARE
== END 2020-11-08 12:35 | disposition home or self-care (01) | DRG 885 ==
LOC: SUPCPDRO 08:09 → EC 08:09 → 3MHU 12:11
PROVIDERS: ADMIT Psychiatry & Neurology Psychiatry; ATTEND Psychiatry & Neurology Psychiatry
DX: F31.2 Bipolar disorder, current episode manic severe with psychotic features (principal); N17.9 Acute kidney failure, unspecified; F12.10 Cannabis abuse, uncomplicated; Z20.822 Contact with and (suspected) exposure to COVID-19; I10 Essential (primary) hypertension; G89.29 Other chronic pain; M54.2 Cervicalgia; M54.5 Low back pain; G62.9 Polyneuropathy, unspecified; R73.9 Hyperglycemia, unspecified; E78.5 Hyperlipidemia, unspecified; M62.830 Muscle spasm of back; R45.87 Impulsiveness; F17.210 Nicotine dependence, cigarettes, uncomplicated; Z71.6 Tobacco abuse counseling; E66.9 Obesity, unspecified; Z68.31 Body mass index [BMI] 31.0-31.9, adult; Z71.3 Dietary counseling and surveillance; Z56.0 Unemployment, unspecified; Z87.19 Personal history of other diseases of the digestive system; Z86.73 Personal history of transient ischemic attack (TIA), and cerebral infarction without residual deficits; Z88.6 Allergy status to analgesic agent; Z80.9 Family history of malignant neoplasm, unspecified
CPT/HCPCS: 36415; 80048; 80053; 80061; 80306; 81001; 82075; 83036; 85025; 87635; 96372; 99285